=== PATIENT | male | born 1995 | race African-American/Black ===

== ENCOUNTER 2019-01-26 08:13 | Emergency (ER) | payer MEDICAID, OTHER ==
[~2019-01-26] VITALS: Ht 170.2 cm; Wt 106.6 kg
[2019-01-26 09:24] VITALS: BP 135/70
[2019-01-26] MEDS ORDERED: BACLOFEN 10 MG TAB PO ONE (10:00)
[2019-01-26] MEDS ORDERED: HYDROcodone-ACET 10/325MG TAB PO ONE (10:00)
== END 2019-01-26 10:27 | disposition home or self-care (01) ==
LOC: ER 08:13
DX: M62.838 Other muscle spasm (principal); V49.49XA Driver injured in collision with other motor vehicles in traffic accident, initial encounter; Y93.89 Activity, other specified; Y99.8 Other external cause status; Y92.410 Unspecified street and highway as the place of occurrence of the external cause
CPT/HCPCS: 72040